=== PATIENT | female | born 1980 | race Caucasian/White ===

== ENCOUNTER 2017-06-20 19:05 | Emergency (ER) | payer OTHER ==
[2017-06-20 19:31] VITALS: BP 155/96
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
== END 2017-06-20 20:57 | disposition home or self-care (01) ==
LOC: JD.ED 19:05
DX: S39.012A Strain of muscle, fascia and tendon of lower back, initial encounter (principal); S16.1XXA Strain of muscle, fascia and tendon at neck level, initial encounter; S40.022A Contusion of left upper arm, initial encounter; S40.012A Contusion of left shoulder, initial encounter; I10 Essential (primary) hypertension; J45.909 Unspecified asthma, uncomplicated; Z79.899 Other long term (current) drug therapy; Z88.5 Allergy status to narcotic agent; V43.53XA Car driver injured in collision with pick-up truck in traffic accident, initial encounter; Y92.410 Unspecified street and highway as the place of occurrence of the external cause
CPT/HCPCS: 73030-26-LT; 73030-LT; 99284

== ENCOUNTER 2022-01-26 18:29 | Emergency (ER) | payer OTHER ==
[2022-01-26 18:34] VITALS: BP 153/98; PULSE 98
[2022-01-26] MEDS ORDERED: Oxymetazoline 0.05% Nasal Spray 30 ML Bottle ONE (18:50)
[2022-01-26] MEDS ORDERED: predniSONE 20 MG Tab PO ONE (20:14)
== END 2022-01-26 21:15 | disposition home or self-care (01) ==
LOC: JD.ED 18:29
DX: R04.0 Epistaxis (principal); I10 Essential (primary) hypertension; E66.9 Obesity, unspecified; Z68.43 Body mass index [BMI] 50.0-59.9, adult; Z88.5 Allergy status to narcotic agent; Z79.899 Other long term (current) drug therapy
CPT/HCPCS: 36415; 85025; 99283; A9270; C9046; J7512

== ENCOUNTER 2023-06-11 13:42 | Emergency (ER) | payer OTHER ==
[2023-06-11] MEDS ORDERED: Sodium Chloride 0.9% 10 ML Syringe FLUSH PRN (14:05)
[2023-06-11] MEDS ORDERED: HYDROmorphone 0.5 MG/0.5 ML Syringe IVPUSH ONE (14:08)
[2023-06-11] MEDS: Sodium Chloride 0.9% 1,000 ML IV SCH ×3 (14:15→17:35)
[2023-06-11] MEDS ORDERED: Iopamidol 612 MG/ML 100 ML Bottle IVPUSH ONE (14:26)
[2023-06-11] MEDS ORDERED: Sodium Chloride 0.9% 10 ML Syringe FLUSH ONE (14:26)
[2023-06-11 14:56] LABS: HEMATOCRIT 25.2 % (37.0-47.0); HEMOGLOBIN 8.2 gm/dl (12.0-16.0); MEAN CORPUSCULAR HEMOGLOBIN 28.4 pg (28.0-32.0); MEAN CORPUSCULAR HGB CONC 32.5 g/dl (32.0-36.0); MEAN CORPUSCULAR VOLUME 87.2 fl (83.0-99.0); MEAN PLATELET VOLUME 10.9 fl (9.4-12.3); PLATELET COUNT,PLT 81 K/mm3 (150-400); RED BLOOD CELL COUNT 2.89 M/mm3 (4.10-5.30)
[2023-06-11 15:11] LABS: WHITE BLOOD CELL COUNT,WBC 2.23 K/mm3 (3.9-11.3)
[2023-06-11 15:17] LABS: INR 1.04; PROTHROMBIN TIME 11.1 SECONDS (9.7-12.0)
[2023-06-11 15:25] LABS: A/G RATIO 0.6 (1-2); ALANINE AMINOTRANSFERASE,ALT 47 U/L (14-59); ALBUMIN 2.6 g/dl (3.4-5.0); ALKALINE PHOSPHATASE 72 U/L (46-116); ANION GAP 18.1 (5-15); ASPARTATE AMNIOTRANSFERASE,AST 48 U/L (15-37); BILIRUBIN TOTAL 0.5 mg/dL (0.2-1.0); BLOOD UREA NITROGEN,BUN 48 mg/dL (7-18); BUN/CREATININE RATIO 7.3 (14-18); CARBON DIOXIDE,CO2 25 mEq/L (21-32); CHLORIDE,CL 102 mEq/L (98-107); CREATININE 6.6 mg/dL (0.55-1.02); ESTIMATED GFR 7 mL/min (>60); GLUCOSE RANDOM 184 mg/dL (70-99); LIPASE 11 U/L (16-77); POTASSIUM,K 3.1 mEq/L (3.5-5.1); PROTEIN TOTAL,TP 6.9 g/dl (6.4-8.2); SODIUM,NA 142 mEq/L (136-145)
[2023-06-11 15:33] LABS: LACTIC ACID 3.4 mmol/L (0.4-2.0)
[2023-06-11 15:34] LABS: TROPONIN I HIGH SENSITIVITY 281 pg/mL (<=51)
[2023-06-11 15:41] LABS: BAND PERCENT MAN 0 % (0-10); BASOPHILS PERCENT MAN 7 (0.1-1.2); BLASTS PERCENT MAN 3; EOSINOPHILS PERCENT MAN 0 % (0.7-5.8); LYMPHOCYTES % ATYPICAL MANUAL 0 %; LYMPHOCYTES PERCENT MAN 24 % (20-40); MONOCYTES PERCENT MAN 3 % (2-10); MYELOCYTE PERCENT MAN 1
[2023-06-11 15:42] LABS: PLATELET COUNT ESTIMATE DECREASED; TOXIC GRANULATION MODERATE
[2023-06-11 15:44] LABS: ANISOCYTOSIS MODERATE; MICROCYTOSIS FEW
[2023-06-11 16:05] LABS: C-REACTIVE PROTEIN 28.8 mg/dL (<1.0)
[2023-06-11 17:12] LABS: CORONAVIRUS COVID-19 NAA NEGATIVE (NEGATIVE); INFLUENZA A NAA NEGATIVE (NEGATIVE); RESPIRATORY SYNCYTIAL VIR NAA NEGATIVE (NEGATIVE)
[2023-06-11] MEDS ORDERED: cefTRIAXone 2 GM in Sodium Chloride 0.9% 100 ML IV ONE (18:05)
[2023-06-11] MEDS ORDERED: Lactated Ringers 1,000 ML IV ONE (19:47)
[2023-06-11] MEDS: Potassium Chloride 10 MEQ in Premix Bag 1 BAG IV SCH ×2 (19:48→21:36)
[2023-06-11 20:46] VITALS: BP 99/50; PULSE 100
== END 2023-06-11 21:40 ==
LOC: JD.ED 13:42
DX: S80.02XA Contusion of left knee, initial encounter (principal); I95.89 Other hypotension; N17.9 Acute kidney failure, unspecified; D61.818 Other pancytopenia; C41.9 Malignant neoplasm of bone and articular cartilage, unspecified; R74.02 Elevation of levels of lactic acid dehydrogenase [LDH]; I10 Essential (primary) hypertension; J45.909 Unspecified asthma, uncomplicated; E66.9 Obesity, unspecified; Z79.899 Other long term (current) drug therapy; Z88.5 Allergy status to narcotic agent; W19.XXXA Unspecified fall, initial encounter
CPT/HCPCS: 0241U; 36415; 71045; 73564; 74177; 80053; 83605; 83690; 84484; 85007; 85027; 85610; 86140; 87040; 93005; 96361; 96365; 96366; 96367; 99285; J0696; J3480; J3490; J7030; J7120; Q9967